=== PATIENT | male | born 1975 | race Caucasian/White ===

== ENCOUNTER 2019-02-20 20:50 | Emergency (ER) | payer SELFPAY ==
[~2019-02-20] VITALS: Ht 175.3 cm; Wt 72.0 kg
[2019-02-20] MEDS ORDERED: AMOXICILLIN500 MG PO (21:11)
[2019-02-20] MEDS ORDERED: TRAMADOL HCL50 MG PO (21:11)
[2019-02-20] MEDS ORDERED: MOTRIN800 MG PO (21:11)
[2019-02-20 21:25] VITALS: BP 129/88
== END 2019-02-20 21:26 | disposition home or self-care (01) | DRG 159 ==
LOC: ED 20:50
DX: K04.7 Periapical abscess without sinus (principal); K02.9 Dental caries, unspecified; F17.210 Nicotine dependence, cigarettes, uncomplicated

== ENCOUNTER 2019-06-21 19:09 | Emergency (ER) | payer BC ==
[~2019-06-21] VITALS: Ht 175.3 cm; Wt 70.4 kg
[~2019-06-21 19:09] MED LIST: AMOXICILLIN500 MG PO; MOTRIN800 MG PO; TRAMADOL HCL50 MG PO
[2019-06-21] MEDS ORDERED: TORADOL PO (21:45)
[2019-06-21 21:59] VITALS: BP 119/86
== END 2019-06-21 21:45 | disposition home or self-care (01) | DRG 605 ==
LOC: ED 19:09
DX: S60.222A Contusion of left hand, initial encounter (principal); F17.210 Nicotine dependence, cigarettes, uncomplicated; W23.0XXA Caught, crushed, jammed, or pinched between moving objects, initial encounter; Y92.89 Other specified places as the place of occurrence of the external cause; Y99.0 Civilian activity done for income or pay

== ENCOUNTER 2020-03-15 09:18 | Emergency (ER) | payer BC ==
[~2020-03-15] VITALS: Ht 175.3 cm; Wt 70.0 kg
[~2020-03-15 09:18] MED LIST changes: +TORADOL PO
[2020-03-15] MEDS ORDERED: CYCLOBENZAPR5 MG PO (10:01)
[2020-03-15] MEDS ORDERED: MOTRIN400 MG PO (10:01)
[2020-03-15 10:17] VITALS: BP 145/75
== END 2020-03-15 10:28 | disposition home or self-care (01) | DRG 552 ==
LOC: ED 09:18
DX: M54.42 Lumbago with sciatica, left side (principal); F17.200 Nicotine dependence, unspecified, uncomplicated

== ENCOUNTER 2022-01-25 14:58 | Emergency (ER) | payer BC ==
[2022-01-25] VITALS (11 sets, daily range): BP systolic 113–144; BP diastolic 71–113
[~2022-01-25] VITALS: Ht 175.3 cm; Wt 66.8 kg
[~2022-01-25 14:58] MED LIST changes: +CYCLOBENZAPR5 MG PO; +HYDROCODONE/ACE1 TAB PO; +MOTRIN400 MG PO
[2022-01-25 16:20] LABS: HEMATOCRIT 45.8 % (39.0-50.0); HEMOGLOBIN 15.1 g/dl (14.0-18.0); IMMATURE GRANULOCYTES 0.2 % (0.0-5.0); MEAN CELL VOLUME 95.2 fL CALC (80.0-100.0); MEAN CORPUSCULAR HGB 31.4 pG CALC (26.0-32.0); NEUT# 12.73 thou/uL (1.82-7.42); RED BLOOD COUNT 4.81 mill/uL (4.70-6.10); RED CELL DISTRI WIDTH 12.6 % (11.5-15.5); URINE BILIRUBIN - DIPSTICK NEGATIVE (NEGATIVE); URINE BLOOD DIPSTICK NEGATIVE (NEGATIVE); URINE COLOR YELLOW; URINE GLUCOSE - DIPSTICK NEGATIVE (NEGATIVE); URINE KETONE NEGATIVE (NEGATIVE); URINE LEUK ESTERASE NEGATIVE (NEGATIVE); URINE PH 5.5 (4.5-8.0); URINE PROTEIN - DIPSTICK NEGATIVE (NEG-TRACE); URINE SPECIFIC GRAVITY >=1.030; URINE UROBILINOGEN - DIPSTICK 0.2 E.U./dL (0.2)
[2022-01-25 16:21] LABS: URINE NITRITE - DIPSTICK NEGATIVE (Negative)
[2022-01-25 16:33] LABS: ALBUMIN 4.2 g/dL (3.2-5.0); ALKALINE PHOSPHATASE 70 u/l (38-126); ANION GAP 10 (6-22 (CALC)); BILIRUBIN, TOTAL 0.4 mg/dL (0.0-1.4); BUN 16 mg/dL (9-20); BUN/CREATININE RATIO 17 (12-20 (CALC)); CARBON DIOXIDE 26 mmol/l (22-30); CHLORIDE 105 mmol/l (95-108); CREATININE 0.9 mg/dL (0.7-1.3); GFR FOR AFR.AMER. > 60 ML/MIN (>=60 (CALC)); GFR OTHER RACES > 60 ML/MIN (>=60 (CALC)); LIPASE 91 u/l (23-300); POTASSIUM 3.9 mmol/l (3.5-5.1); SGOT/AST 24 u/l (17-59); SODIUM 138 mmol/l (137-146); TOTAL PROTEIN 7.5 g/dL (6.3-8.2)
[2022-01-25] MEDS ORDERED: TORADOL PO (18:11)
== END 2022-01-25 18:26 | disposition home or self-care (01) | DRG 392 ==
LOC: ED 14:58
PROVIDERS: Family Medicine
DX: R10.31 Right lower quadrant pain (principal); F17.200 Nicotine dependence, unspecified, uncomplicated; Z87.442 Personal history of urinary calculi

== ENCOUNTER 2022-06-15 16:22 | Emergency (ER) | payer BC ==
[2022-06-15] VITALS (8 sets, daily range): BP systolic 107–121; BP diastolic 71–89
[~2022-06-15] VITALS: Ht 175.3 cm; Wt 67.0 kg
[2022-06-15] MEDS ORDERED: NAPROXEN500 MG PO (18:00)
[2022-06-15] MEDS ORDERED: METHOCARBAMOL500 MG PO (18:00)
== END 2022-06-15 18:38 | disposition home or self-care (01) | DRG 605 ==
LOC: ED 16:22
DX: S20.212A Contusion of left front wall of thorax, initial encounter (principal); X58.XXXA Exposure to other specified factors, initial encounter; F17.210 Nicotine dependence, cigarettes, uncomplicated

== ENCOUNTER 2024-04-01 13:47 | Emergency (ER) | payer OTHER ==
[~2024-04-01] VITALS: Ht 175.3 cm; Wt 74.0 kg
[~2024-04-01 13:47] MED LIST changes: +METHOCARBAMOL500 MG PO; +NAPROXEN500 MG PO
[2024-04-01 14:31] VITALS: BP 127/92
[2024-04-01] MEDS ORDERED: CLINDAMYCIN PHOSPHATE 50 ML IV ONE (14:45)
[2024-04-01 15:00] VITALS: BP 135/93
[2024-04-01 15:22] LABS: BASO% 0.3 % (0-3); EOS% 1.1 % (0-8); HEMATOCRIT 40.1 % (39.0-50.0); HEMOGLOBIN 13.5 g/dl (14.0-18.0); IMMATURE GRANULOCYTES 0.2 % (0.0-5.0); LYMPH% 14.9 % (15-41); MEAN CELL VOLUME 91.1 fL CALC (80.0-100.0); MEAN CORPUSCULAR HGB 30.7 pG CALC (26.0-32.0); MEAN CORPUSCULAR HGB CONC 33.7 g/dL CAL (32.0-36.0); MONO% 11.1 % (2-13); NEUT# 8.98 thou/uL (1.82-7.42); NEUT% 72.4 % (42-76); RED BLOOD COUNT 4.4 mill/uL (4.70-6.10); RED CELL DISTRI WIDTH 12.7 % (11.5-15.5)
[2024-04-01 15:40] LABS: CREATININE 0.7 mg/dL (0.7-1.3); POTASSIUM 3.7 mmol/l (3.5-5.1)
[2024-04-01] MEDS ORDERED: NAPROXEN500 MG PO (16:56)
[2024-04-01] MEDS ORDERED: CLINDAMYCIN HY300 MG PO (16:56)
== END 2024-04-01 17:28 | disposition home or self-care (01) | DRG 603 ==
LOC: ED 13:47
PROVIDERS: Family Medicine
DX: L03.113 Cellulitis of right upper limb (principal); M25.532 Pain in left wrist; M25.531 Pain in right wrist; F17.210 Nicotine dependence, cigarettes, uncomplicated
CPT/HCPCS: J0736